=== PATIENT | male | born 1950 ===

== ENCOUNTER 2020-11-21 09:24 | Outpatient (CLI) | payer OTHER | END 2020-11-21 09:38 | disposition home or self-care (01) | LOC: SONOGRAMA 09:24 | PROVIDERS: ATTEND Specialist | DX: R97.20 Elevated prostate specific antigen [PSA] (principal); N40.3 Nodular prostate with lower urinary tract symptoms; R19.00 Intra-abdominal and pelvic swelling, mass and lump, unspecified site; N30.80 Other cystitis without hematuria ==